=== PATIENT | female | born 1945 | race Caucasian/White ===

== ENCOUNTER → 2017-03-03 16:47 | Outpatient (CLI) | payer MEDICARE, MEDICAID ==
[2015-08-12 09:11] VITALS: BMI 24.5
[~2017-03-03 16:47] MED LIST: CELEXA20 MG PO; HYDROCODON-ACE1 EAC7 PO; KLONOPIN1 MG PO; LISINOPRIL10 MG PO; PLAVIX75 MG PO; SYNTHROID125 MCG PO; TOPROL XL25 MG PO; ZOCOR20 MG PO
== END | disposition home or self-care (01) ==
LOC: D.MAMMO 09:30 → D.US 10:30 → D.MAMMO 15:00
DX: R92.8 Other abnormal and inconclusive findings on diagnostic imaging of breast (principal)

== ENCOUNTER 2018-05-20 18:00 | Emergency (ER) | payer MEDICARE, MEDICAID ==
[~2018-05-20] VITALS: Ht 157.5 cm; Wt 60.9 kg
[2018-05-20 18:28] VITALS: Ht 157.5 cm; Wt 60.9 kg
[2018-05-20] MEDS ORDERED: SUBOXONE 2 MG-01 TAB SL (18:30)
[2018-05-20 18:52] LABS: BASOPHILS 0.3 % (0-2); EOSINOPHILS 2.8 % (0-7); HEMATOCRIT 42.8 % (36.0-48.0); HEMOGLOBIN 14.3 g/dL (12-16); IMMATURE GRANULOCYTES 0.2 % (0-5); MCH 31.8 pg (26.0-34.0); MCHC 33.4 g/dL (31.0-37.0); MCV 95.3 fL (80.0-100.0); MEAN PLATELET VOLUME 11.1 fL (7.4-10.4); MONOCYTES 8.6 % (2-11); NEUTROPHILS 47.1 % (40-80); PLATELET COUNT 199 10x3/uL (130-400); RBC 4.49 10x6/uL (4.00-5.40); RDW 13.5 % (11.5-14.5); WBC 6.5 10x3/uL (4.8-10.8)
[2018-05-20 19:16] LABS: ALBUMIN 3.9 g/dL (3.4-5.0); ANION GAP 11.3 mmol/L (8-16); BILIRUBIN - TOTAL 0.44 mg/dL (0.2-1.3); CALCIUM 9.1 mg/dL (8.5-10.1); CARBON DIOXIDE 30.5 mmol/L (21.0-32.0); CREATININE - SERUM 1.1 mg/dL (0.6-1.3); POTASSIUM - SERUM 3.8 mmol/L (3.5-5.1); PROTEIN - SERUM 8.2 g/dL (6.4-8.2)
[2018-05-20 19:19] LABS: TROPONIN-I 0.045 ng/mL (0.000-0.060)
[2018-05-20 19:29] LABS: APPEARANCE CLEAR (CLEAR); BACTERIA FEW /hpf (NONE SEEN); BILIRUBIN NEGATIVE (NEGATIVE); COLOR YELLOW (YELLOW); EPITHELIAL CELLS 0-5 /hpf (0-5); GLUCOSE NEGATIVE (NEGATIVE); KETONE NEGATIVE (NEGATIVE); NITRITE NEGATIVE (NEGATIVE); PROTEIN NEGATIVE (NEGATIVE); RED CELLS - URINE 0-5 /hpf (0-5); UROBILINOGEN NORMAL (NORMAL); WHITE CELLS - URINE 0-5 /hpf (0-5)
[2018-05-20] MEDS ORDERED: CHRONULAC30 ML PO (20:19)
[2018-05-20 20:41] VITALS: BP 142/68
== END 2018-05-20 20:41 | disposition home or self-care (01) ==
LOC: D.ER 18:00
PROVIDERS: Emergency Medicine
DX: K59.00 Constipation, unspecified (principal); E03.9 Hypothyroidism, unspecified; G40.909 Epilepsy, unspecified, not intractable, without status epilepticus; I10 Essential (primary) hypertension; F17.200 Nicotine dependence, unspecified, uncomplicated; Z86.59 Personal history of other mental and behavioral disorders

== ENCOUNTER 2019-03-19 16:23 | Emergency (ER) | payer MEDICARE, MEDICAID ==
[~2019-03-19] VITALS: Ht 157.5 cm; Wt 55.5 kg
[~2019-03-19 16:23] MED LIST changes: +CHRONULAC30 ML PO; +SUBOXONE 2 MG-01 TAB SL
[2019-03-19 16:26] VITALS: Ht 157.5 cm; Wt 55.5 kg
[2019-03-19] MEDS ORDERED: PREDNISONE10 MG PO (18:13)
[2019-03-19] MEDS ORDERED: IBUPROFEN800 MG PO (18:13)
[2019-03-19 18:55] VITALS: BP 132/69
== END 2019-03-19 18:55 | disposition home or self-care (01) ==
LOC: D.ER 16:23
DX: R07.81 Pleurodynia (principal)